=== PATIENT | female | born 1980 | race Caucasian/White ===

== ENCOUNTER 2021-10-11 15:23 | Emergency (ER) | payer OTHER, SELFPAY ==
--- NOTE | ~2021-10-11 | XR_ITS ---
EXAMINATION: XR wrist RT min 3V DATE: 10/11/2021 15:38 INDICATION: Right wrist pain. Fall. TECHNIQUE: 4 views of right wrist were obtained. COMPARISON: None. FINDINGS: Bone alignment is normal. No fracture. There is mild osteoarthritis of first carpometacarpa l joint. IMPRESSION: 1. Mild osteoarthritis of first carpometacarpal joint. Reviewed, dictated and finalized at location A.
[2021-10-11 15:31] VITALS: BP 111/62; PULSE 73; RESP 16; TEMP 36.9; O2SAT 99
--- NOTE | 2021-10-11 16:08 | ED.UPPEXIN ---
HPI - Extremity Injury (Upper) General Chief Complaint: Extremity Injury, Upper Stated Complaint: Right wrist Pain Time Seen by Provider: 10/11/21 16:08 Source: patient and RN notes reviewed Mode of arrival: ambulatory Limitations: no limitations History of Present Illness HPI narrative: 41-year-old female presented for complaint of right wrist pain after fall yesterday. She states she fell forward landing on the right knee and catching herself with the right arm extended. Pain is worse with flexing hand movement. Denies bruising or swelling. She has taken ibuprofen and wrapped it with tape. Denies numbness, tingling, or weakness to the hand. She is left-hand dominant. Related Data Home Medications Medication Instructions Recorded Confirmed No Home Medications 10/11/21 10/11/21 Allergies Allergy/AdvReac Type Severity Reaction Status Date / Time penicillin G Allergy Mild Unknown Verified 10/11/21 15:28 Penicillins Allergy Unknown Unknown Verified 10/11/21 15:28 Review of Systems Review of Systems: CONSTITUTIONAL: Denies body aches, fever, chills EYES: Denies visual changes ENT: Denies rhinorrhea, congestion CARDIOVASCULAR: Denies chest pain, palpitations, or edema. RESPIRATORY: Denies cough or dyspnea. GASTROINTESTINAL: Denies abdominal pain, nausea, vomiting, or diarrhea. SKIN: Denies rash, itching, or wounds. MUSCULOSKELETAL: reports right wrist pain NEUROLOGIC: Denies headache, numbness, tingling, or weakness. PSYCH: Denies depression or anxiety. All systems reviewed & are unremarkable except as noted in HPI and below PMFSH Past Medical History Medical History (Updated 10/11/21 @ 16:17 by Sally Hoff APRN) Screening for cardiovascular condition Screening for thyroid disorder Surgical History Surgical History History of lumpectomy Family History Family History Mother Family history of endocrine disorder Hypertension Family history of hypothyroidism Grandparent Diabetes mellitus, Onset Age: 83 Acute myocardial infarction, Onset Age: 82 Cerebrovascular accident, Onset Age: 83 Family history of malignant neoplasm of breast, Onset Age: 82 Family history of congestive heart failure, Onset Age: 82 Father Hypertension Carcinoma of colon Social History Social History Smoking packs per day: 0.05 Smoking cigarettes per day: 1.0 Years smoked: 15 Smoking pack-years: 0.75 Smoking status: Former smoker Smoking end date: 07/31/11 Alcohol intake: current Alcohol use details: social Substance use: never Comments At time of signature, I have reviewed and agree with nursing past medical, surgical, social and family history unless otherwise noted. Please see nursing chart for further information. There is no relevant family history pertinent to the presenting complaint Exam Narrative: GENERAL: Well-appearing, well-nourished, and in no acute distress. HEAD: Normocephalic, atraumatic. EYES: PERRLA, conjunctivae clear NECK: Supple. CHEST: Speaks in full sentences. No respiratory distress. HEART: Regular rate and rhythm. Normal and equal peripheral pulses. EXTREMITIES: left UE has normal strength and sensation, normal range of motion with flexion/extension/rotation, but endorses pain with flexion at wrist. No edema or ecchymosis,no point tenderness. No open wounds, skin tenting, or obvious deformity; alignment normal, pulse palpable and equal bilaterally, skin warm, dry, pink. Capillary refill less than 3 seconds. SKIN: Warm, dry, no rash. NEURO: Alert and oriented x3. PSYCH: Normal mood and affect Course Course Emergency Course: Patient is aware of diagnosis, understands and agrees to treatment plan. Anticipatory guidance given. Patient agrees to follow-up as directed and is jennifer
== END 2021-10-11 16:20 | disposition home or self-care (01) ==
PROVIDERS: Emergency Provider Nurse Practitioner Family; PCP Internal Medicine
DX: S66.911A Strain of unspecified muscle, fascia and tendon at wrist and hand level, right hand, initial encounter (principal); W19.XXXA Unspecified fall, initial encounter; Z87.891 Personal history of nicotine dependence
CPT/HCPCS: 73110; 99213; G0463

== ENCOUNTER → 2022-01-03 10:19 | Outpatient (CLI) | payer OTHER, SELFPAY ==
--- NOTE | ~2022-01-03 | US_ITS ---
US thyroid INDICATION: Carla's thyroiditis. TECHNIQUE: Real-time sonographic images of the thyroid gland were obtained. COMPARISON: No prior studies for comparison. FINDINGS: The right thyroid lobe measures 4.9 x 1.5 x 1.4 cm. The left thyroid lobe measures 4.1 x 1 .2 x 1.3 cm.. There are 2 small cysts of the right thyroid lobe, largest measuring 7 mm. No suspiciou s solid masses to suggest malignancy. Normal vascular flow is present. IMPRESSION: 1. Benign cysts of the right thyroid lobe measuring up to 7 mm. No sonographic evidence for malignan cy. Reviewed, dictated and finalized at location B. IMPRESSION: 1. Benign cysts of the right thyroid lobe measuring up to 7 mm. No sonographic evidence for malignancy.
== END ==
PROVIDERS: PCP Nurse Practitioner Adult Health; Visit Provider Nurse Practitioner Adult Health
DX: E06.3 Autoimmune thyroiditis (principal); E04.1 Nontoxic single thyroid nodule
CPT/HCPCS: 76536

== ENCOUNTER 2022-08-16 07:40 | Outpatient (CLI) | payer OTHER, SELFPAY ==
--- NOTE | ~2022-08-16 | MM_ITS ---
EXAMINATION: MM screening heather BI w ignacio HISTORY: Screening mammogram TECHNIQUE: Craniocaudal and mediolateral oblique 3-D tomosynthesis images were obtained and synthetic 2-D images were generated. CAD analysis was submitted and interpreted. COMPARISON: No prior mammogram is available for comparison at this institution. BREAST PARENCHYMAL COMPOSITION: The breasts are heterogeneously dense, which may obscure small masses . FINDINGS: No suspicious mass, calcification, or architectural distortion are identified in either mahin ast to suggest malignancy. IMPRESSION: 1. No mammographic evidence of malignancy. 2. Recommend routine screening mammography in one year. BI-RADS Category 1: Negative Reviewed, dictated and finalized at location A. 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
== END 2022-08-16 07:41 | disposition home or self-care (01) ==
PROVIDERS: PCP Family Medicine; Visit Provider Nurse Practitioner Family
DX: Z12.31 Encounter for screening mammogram for malignant neoplasm of breast (principal)
CPT/HCPCS: 77063; 77067

== ENCOUNTER 2022-09-19 08:56 | Outpatient (CLI) | payer OTHER, SELFPAY ==
--- NOTE | 2022-09-19 11:00 | NEURO_ITS ---
Impression: # Complains of left elbow discomfort. # Subtle evolving left Carpal Tunnel Syndrome. # Normal needle/EMG exam. # Clinical correlation recommended. Motor Nerve Conduction Upper Extremities Median Nerve Conduction Velocity (m/sec) Terminal Latency (msec) Response Voltage(mV) Elbow-Wrist Wrist Elbow Wrist Right Left 60 3.5 4 4 Ulnar Nerve Conduction Velocity (m/sec) Terminal Latency (msec) Response Voltage(mV) Above Elbow Below Elbow Wrist Above Elbow Below Elbow Wrist Right Left 56 2.3 4 5 F-Wave Latency Median (ms) Ulnar (ms) Right Left 24.6 25.7 Sensory Nerve Conduction Upper Extremities Median Nerve Stimulation Terminal Latency (msec) Wrist/Digit Response Voltage (uV) Wrist Right Left 2.8/2.8 72/75 Ulnar Nerve Stimulation Terminal Latency (msec) Wrist/Digit Response Voltage (uV) Wrist Right Left 2.2 68 Radial Nerve Terminal Latency (msec) Response Voltage(mV) Right Left 1.8 22 Left Right Muscles Examined Fibrillation Fasciculation Scarcity Voltage Duration Left Right Left Right Left Right Left Right Left Right Deltoid Biceps X Brachioradialis Triceps X Pronator Teres X Ext Indicis X Ext Digitorum X Abd Poll Brev X 1st Dorsal Interosseus Paraspinals MTDD
== END 2022-09-19 08:57 | disposition home or self-care (01) ==
LOC: ANHNEURO 08:58
PROVIDERS: PCP Family Medicine; Visit Provider Nurse Practitioner Family
DX: G56.02 Carpal tunnel syndrome, left upper limb (principal); M77.12 Lateral epicondylitis, left elbow
CPT/HCPCS: 95886; 95909

== ENCOUNTER → 2023-03-06 11:20 | Outpatient (CLI) | payer OTHER, SELFPAY ==
--- NOTE | ~2023-03-06 | US_ITS ---
EXAMINATION: US thyroid DATE: 03/06/2023 11:50 INDICATION: Cyst of thyroid. TECHNIQUE: Multiple ultrasound images of the thyroid were obtained. COMPARISON: Ultrasound 01/03/22 FINDINGS: The right thyroid lobe measures 5.3 x 1.6 x 1.0 cm. The left thyroid lobe measures 4.6 x 1.2 x 1.4 c m. The thyroid is heterogeneous and hypoechoic. Vascularity is normal. In the right thyroid lobe, th ere is a 7 mm solid, very hypoechoic, wider than tall nodule with ill-defined margin without echogeni c foci (TI-RADS TR4). IMPRESSION: 1. Heterogeneous thyroid, likely chronic lymphocytic (Carla) thyroiditis. 2. Small thyroid nodule, likely not clinically significant. No follow-up is needed. Reviewed, dictated and finalized at location A. IMPRESSION: 1. Heterogeneous thyroid, likely chronic lymphocytic (Carla) thyroiditis. 2. Small thyroid nodule, likely not clinically significant. No follow-up is nee ded.
== END ==
PROVIDERS: PCP Nurse Practitioner Family; Visit Provider Internal Medicine Endocrinology, Diabetes & Metabolism
DX: E04.1 Nontoxic single thyroid nodule (principal)
CPT/HCPCS: 76536

== ENCOUNTER 2024-01-09 10:09 | Day surgery (SDC) | payer OTHER, SELFPAY ==
[2023-12-27 11:37] VITALS: BMI 29.9
--- NOTE | 2024-01-09 07:06 | PM.HPGS ---
History of Present Illness History of Present Illness Consent: Risks, benefits, and alternatives have been discussed and questions answered. Patient agrees to proceed with procedure. Chief complaint: Neoplasm Screening Narrative: Stacia Ragland is a 43 year old female who is referred for colon cancer screening. Review of Systems Review of Systems: All systems reviewed & are unremarkable except as noted in HPI and below PMFSH Past Medical History Medical History Hypothyroid Pre-diabetes Screening for cardiovascular condition Screening for thyroid disorder Surgical History Surgical History History of lumpectomy Family History Family History Mother Family history of endocrine disorder Hypertension Family history of hypothyroidism Grandparent Diabetes mellitus, Onset Age: 83 Acute myocardial infarction, Onset Age: 82 Cerebrovascular accident, Onset Age: 83 Family history of malignant neoplasm of breast, Onset Age: 82 Family history of congestive heart failure, Onset Age: 82 Father Hypertension Carcinoma of colon Sibling Family history of hypothyroidism Social History Social History Social History: Stacia is to partner Armani, they have 4 grown children and 1 grandchild. 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 Smoking packs per day: 0.05 Smoking cigarettes per day: 1.0 Years smoked: 15 Smoking pack-years: 0.75 Smoking status: Former smoker Smoking end date: 07/31/11 Alcohol intake: current Alcohol use details: 3 per day Substance use: current Substance use type: does not use Other substance usage details: Edible Lack of Transportation: No Lack of Food: Never True Current Housing: I Have Housing Concerned About Future Housing: No Difficulty Paying Gas/Electric Bills: No Difficulty Paying for Meds: No Currently Unemployed: No Education: Master's Degree or Higher Difficulty w/ Childcare or Family Care: No Living arrangements: with family Additional living arrangements comments: Significant other Occupation/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: occupation 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 Gender identity (if verbalized by the patient): Female Meds Home Medications and Allergies Home Medications Medication Instructions Recorded Confirmed Type folic acid 1 mg tablet 1 mg PO DAILY 07/12/22 01/09/24 History magnesium 200 mg tablet 400 mg PO DAILY 07/12/22 01/09/24 History levothyroxine 50 mcg tablet 50 mcg PO DAILY #90 tabs 12/21/23 01/09/24 Rx (Synthroid) cyanocobalamin (vitamin B-12) 1,000 mcg subcut WEEKLY 01/03/24 01/09/24 History 1,000 mcg/mL injection solution Allergies Allergy/AdvReac Type Severity Reaction Status Date / Time penicillin G Allergy Mild Unknown Verified 01/09/24 10:39 Penicillins Allergy Unknown Unknown Verified 01/09/24 10:39 Exam Resp: Auscultation: clear to auscultation bilaterally Cardio: Rate: regular rate Rhythm: regular rhythm GI: GI Palp: Yes Soft to palpation and No Tenderness to palpation present (GI) Assessment and Plan Assessment and plan (1) Encounter for screening colonoscopy: Code(s): Z12.11 - Encounter for screening for malignant neoplasm of colon Status: Acute Assessment and Plan: Colonoscopy with possible biopsy or polypectomy or cautery or injection of substances.
[2024-01-09 10:46] VITALS: BP 110/79; PULSE 82; RESP 16; TEMP 36.5; O2SAT 100; BMI 28.9
[2024-01-09] MEDS: LACTATED RINGERS 1,000 ML 150 ML IV CONT (10:56)
--- NOTE | 2024-01-09 11:04 | WPDANESEPPF ---
Anes - Initial Pre Proc Eval Procedure: Operation Date: 01/09/24 11:30 Proposed Procedures p Screening Colonoscopy - Butch Singh MD Date/Time: 01/09/24 11:04 Surgeon: Butch Singh MD Pre Op Diagnosis: Neoplasm Screening Patient Data Age: 43 Gender: F Height: 1.68 m Weight: 81.4 kg Last Vital Signs Temp 36.5 C 01/09/24 10:46 Pulse 82 01/09/24 10:46 Resp 16 01/09/24 10:46 BP 110/79 01/09/24 10:46 Pulse Ox 100 01/09/24 10:46 O2 Del Method Room Air 01/09/24 10:46 Allergies Allergy/AdvReac Type Severity Reaction Status Date / Time penicillin G Allergy Mild Unknown Verified 01/09/24 10:39 Penicillins Allergy Unknown Unknown Verified 01/09/24 10:39 Home Medications Medication Instructions Recorded Confirmed Type folic acid 1 mg tablet 1 mg PO DAILY 07/12/22 01/09/24 History magnesium 200 mg tablet 400 mg PO DAILY 07/12/22 01/09/24 History levothyroxine 50 mcg tablet 50 mcg PO DAILY #90 tabs 12/21/23 01/09/24 Rx (Synthroid) cyanocobalamin (vitamin B-12) 1,000 mcg subcut WEEKLY 01/03/24 01/09/24 History 1,000 mcg/mL injection solution Patient hx anesthesia problems: none Family hx anesthesia problems: none Results Review: All pre-operative results and documents have been reviewed as part of the pre-operative evaluation. [facility] Past Medical History Medical History Hypothyroid Pre-diabetes Screening for cardiovascular condition Screening for thyroid disorder Surgical History Surgical History History of lumpectomy Family History Family History Mother Family history of endocrine disorder Hypertension Family history of hypothyroidism Grandparent Diabetes mellitus, Onset Age: 83 Acute myocardial infarction, Onset Age: 82 Cerebrovascular accident, Onset Age: 83 Family history of malignant neoplasm of breast, Onset Age: 82 Family history of congestive heart failure, Onset Age: 82 Father Hypertension Carcinoma of colon Sibling Family history of hypothyroidism Social History Social History Social History: Stacia is to partner Armani, they have 4 grown children and 1 grandchild. 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 Smoking packs per day: 0.05 Smoking cigarettes per day: 1.0 Years smoked: 15 Smoking pack-years: 0.75 Smoking status: Former smoker Smoking end date: 07/31/11 Alcohol intake: current Alcohol use details: 3 per day Substance use: current Substance use type: does not use Other substance usage details: Edible Lack of Transportation: No Lack of Food: Never True Current Housing: I Have Housing Concerned About Future Housing: No Difficulty Paying Gas/Electric Bills: No Difficulty Paying for Meds: No Currently Unemployed: No Education: Master's Degree or Higher Difficulty w/ Childcare or Family Care: No Living arrangements: with family Additional living arrangements comments: Significant other Occupation/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 Informed Consent: The patient's anesthetic plan and its attendant risks and benefits were discussed with the patient
[2024-01-09 11:44] VITALS: BP 110/82; PULSE 86; RESP 16; O2SAT 98
[2024-01-09 11:54] VITALS: BP 109/70; PULSE 73; RESP 16; O2SAT 100
[2024-01-09 12:04] VITALS: BP 108/74; PULSE 64; RESP 16; O2SAT 100
--- NOTE | 2024-01-09 12:06 | WPDANESPN ---
Anes - Prog Note Post-Op Date/Time: 01/09/24 12:06 Cardiovascular status: normal Respiratory status: normal Airway patency: baseline Mental status: baseline Post-Op hydration status: normal Vital Signs: Last Vital Signs Temp 36.5 C 01/09/24 10:46 Pulse 64 01/09/24 12:04 Resp 16 01/09/24 12:04 BP 108/74 01/09/24 12:04 Pulse Ox 100 01/09/24 12:04 O2 Del Method Room Air 01/09/24 12:04 Pain Score (VAS): 0/10 I/O: Intake & Output 01/08/24 01/09/24 01/09/24 23:59 07:59 15:59 Intake Total 650 Balance 650 Patient Feedback: Patient satisfied with anesthetic care.
== END 2024-01-09 12:09 | disposition home or self-care (01) ==
PROVIDERS: PCP Nurse Practitioner Adult Health; Visit Provider Internal Medicine Gastroenterology
PROC: 0DJD8ZZ Inspection of Lower Intestinal Tract, Via Natural or Artificial Opening Endoscopic (ICD-10-PCS; CPT 45378; principal; 2024-01-09 11:30)
DX: Z12.11 Encounter for screening for malignant neoplasm of colon (principal)
CPT/HCPCS: 45378

== ENCOUNTER 2024-02-27 11:47 | Outpatient (CLI) | payer OTHER, SELFPAY ==
--- NOTE | ~2024-02-27 | US_ITS ---
EXAMINATION: US thyroid DATE: 02/27/2024 12:03 INDICATION: Hypothyroidism, unspecified. TECHNIQUE: Multiple ultrasound images of the thyroid were obtained. COMPARISON: Ultrasound 03/06/2023 FINDINGS: The right thyroid lobe measures 4.3 x 1.1 x 1.2 cm. The left thyroid lobe measures 4.2 x 1.3 x 1.3 c m. The thyroid demonstrates diffusely heterogeneous hypoechogenicity. Vascularity is normal. In the right thyroid lobe, there is a 7 mm solid, very hypoechoic, wider than tall nodule with smooth margin without echogenic foci (TI-RADS TR4). IMPRESSION: 1. Heterogeneous thyroid, likely chronic lymphocytic (Carla) thyroiditis. 2. Small thyroid nodule, likely not clinically significant. No follow-up is needed. Reviewed, dictated and finalized at location A. IMPRESSION: 1. Heterogeneous thyroid, likely chronic lymphocytic (Carla) thyroiditis. 2. Small thyroid nodule, likely not clinically significant. No follow-up is nee ded.
== END 2024-02-27 11:48 ==
LOC: MICIMG 11:48
PROVIDERS: PCP Nurse Practitioner Adult Health; Visit Provider Nurse Practitioner Adult Health
DX: E03.9 Hypothyroidism, unspecified (principal)
CPT/HCPCS: 76536

== ENCOUNTER 2024-02-27 12:09 | Outpatient (CLI) | payer OTHER, SELFPAY ==
--- NOTE | ~2024-02-27 | MM_ITS ---
EXAMINATION: MM screening heather BI w ignacio HISTORY: Screening TECHNIQUE: Craniocaudal and mediolateral oblique 3-D tomosynthesis images were obtained and synthetic 2-D images were generated. CAD analysis was submitted and interpreted. COMPARISON: 08/16/2022 BREAST PARENCHYMAL COMPOSITION: Not dense: There are scattered areas of fibroglandular density. FINDINGS: There is no evidence of suspicious mass, calcification, or architectural distortion to sugg est malignancy in either breast. There has been no suspicious interval change. IMPRESSION: 1. No mammographic evidence of malignancy. 2. Recommend routine screening mammography in one year. BI-RADS Category 1: Negative Reviewed, dictated and finalized at location B.
== END 2024-02-27 12:10 | disposition home or self-care (01) ==
LOC: ANHIMG 12:11
PROVIDERS: PCP Nurse Practitioner Adult Health; Visit Provider Nurse Practitioner Adult Health
DX: Z12.31 Encounter for screening mammogram for malignant neoplasm of breast (principal)
CPT/HCPCS: 77063; 77067

== ENCOUNTER 2025-05-12 08:04 | Outpatient (CLI) | payer OTHER, SELFPAY ==
--- NOTE | ~2025-05-12 | MM_ITS ---
EXAMINATION: MM screening heather BI w ignacio HISTORY: Screening TECHNIQUE: Craniocaudal and mediolateral oblique 3-D tomosynthesis images were obtained and synthetic 2-D images were generated. CAD analysis was submitted and interpreted. COMPARISON: 08/16/2022 BREAST PARENCHYMAL COMPOSITION: There are scattered areas of fibroglandular density. FINDINGS: There is no evidence of suspicious mass, calcification, or architectural distortion to suggest malignancy. There has been no suspicious interval change. IMPRESSION: 1. No mammographic evidence of malignancy. Recommend routine screening mammography in one year. BI-RADS Category 2: Benign finding(s) Reviewed, dictated and finalized at location Q. IMPRESSION: 1. No mammographic evidence of malignancy. Recommend routine screening mammogra phy in one year. BI-RADS Category 2: Benign finding(s)
--- OUTSIDE RECORDS SUMMARY | 2025-05-12 08:11 | XMS_ITS | Clinical Summary ---
Author Organization [facility] Address [address] [place] [id number] Care Team Providers Care Flavor Room Worker Name Role Phone Unavailable Primary Care Provider Unavailabl e Social History Tobacco Use Types Packs/Day Years Used Date Smoking Tobacco: Never Assessed Comments Unknown Sex and Gender Information Value Date Recorded Sex Assigned at Not on file Legal Sex Female 7:05 PM CDT Gender Identity Not on file Sexual Orientation Not on file Plan of Treatment Health Maintenance Due Date Last Done Comments Cervical Cancer Screening Pa p Smear (Age 30 to 64) Every 3 Years 1978 Colorectal Cancer Screening Colonoscopy (10 Years) 1978 Annual Physical 1981 Hepatitis C 1996 DTaP, Tdap and Td Vaccines ( 1 - Tdap) 1997 Hepatitis B Vaccines (1 of 3 - 19+ 3-dose series) 1997 Cervical Cancer Screening Pa p with HPV Testing (Age 30 to 64) Every 5 Years 2008 Cervical Cancer Screening with HPV 2008 Mammogram Screening 2018 COVID-19 Vaccine (2023-2 5 season) 2025 Influenza Adult (#1) 2025 Meningococcal B Vaccine Aged Out No l onger eligible based on patient's age to complete this topic Meningococcal Vaccine Aged Out No deya corazon eligible based on patient's age to complete this topic Pneumococcal Vaccine: Pediat rics (0 to 5 Years) and At-Risk Patients (6 to 49 Years) Aged Out No longer eligible b ased on patient's age to complete this topic RSV Immunizations Under 20 Months Aged Out No longer eligible based on patient's age to complete this topic
== END 2025-05-12 08:05 | disposition home or self-care (01) ==
LOC: CHSIMG 08:05
PROVIDERS: PCP Nurse Practitioner Adult Health; Visit Provider Nurse Practitioner Adult Health
DX: Z12.31 Encounter for screening mammogram for malignant neoplasm of breast (principal)
CPT/HCPCS: 77063; 77067